=== PATIENT | female | born 1970 | race Caucasian/White ===

== ENCOUNTER 2018-12-02 18:31 | Emergency (ER) | payer BC, MEDICAID, OTHER ==
[~2018-12-02] VITALS: Ht 170.2 cm; Wt 45.6 kg
[2018-12-02 18:35] VITALS: BP 128/76; PULSE 101; RESP 20; Ht 170.2 cm; Wt 45.6 kg
[2018-12-02] MEDS ORDERED: ACET500C5 PO (18:56)
--- NOTE | 2018-12-02 19:07 | ERD ---
ER Documentation Chief Complaint Chief Complaint PT reports ST x 3 weeks, worse today HPI Patient is a 48-year-old female, past medical history of COPD, candidal esophagitis, history of heroin use, daily cigarette smoker, who presents to the ER for concerns of throat pain and dysphagia for the last month. She states to day her symptoms are worse. Patient states she has pain with swallowing. Patient also has some hoarseness in her voice. Patient denies any fevers, chills, nausea, vomiting, hematemesis, drooling, trismus. Patient does have a history of a chronic dry cough secondary to cigarette smoking. Patient denies any chest pain or shortness of breath. Patient states 2 months back she was seen at [facility] for similar symptoms. Patient states she was told she needs to follow-up with an ENT specialist however she has not followed up with an ENT specialist yet. ROS All systems reviewed and are negative except as per history of present illness. Medications Home Meds Active Scripts Acetaminophen* (Tylophen*) 500 Mg Capsule, 1 CAP PO Q6H PRN for PAIN AND OR ELEVATED TEMP, #20 CAP Prov:CRUZITO VASQUEZ PA-C 12/02/18 Allergies Allergies: Coded Allergies: No Known Allergy (Unverified , 12/02/18) PMhx/Soc Medical and Surgical Hx: pt denies Medical Hx, pt denies Surgical Hx Hx Alcohol Use: No Hx Substance Use: Yes (heroin) Hx Tobacco Use: Yes Smoking Status: Current every day smoker FmHx Family History: No diabetes Physical Exam Vitals Vital Signs Date Temp Pulse Resp B/P (MAP) Pulse Ox O2 O2 Flow FiO2 Time Delivery Rate 12/02/18 98.5 101 20 128/76 100 18:35 (93) Physical Exam GENERAL: Cachectic female. Appears in no acute distress. Speaking in full sentences. HEAD: Normocephalic, atraumatic. No deformities or ecchymosis. EYE: Pupils equal, round, and reactive to light. EOMs intact. No conjunctival erythema. No eye discharge. ENT: External ear without any masses or tenderness. Auditory canals clear bilaterally. TM visualized bilaterally, non-erythematous, non-bulging. Nasal mucosa pink with no discharge. Oropharynx is pink without any tonsillar swelling or exudates. No uvula deviation. No kissing tonsils. No drooling. No trismus. Patient is tolerating secretions well. Hoarseness in voice noted. Tongue is normal in appearance. NECK: Supple. No meningismus. Normal ROM of the neck. No hyperextension of the neck. LUNG: Clear to auscultation bilaterally. No rhonchi, wheezing, rales or coarse breath sounds. HEART: Regular rate and rhythm. No murmurs, rubs or gallops. EXTREMITES: Equal pulses bilaterally. No peripheral clubbing, cyanosis or edema. No unilateral leg swelling. NEUROLOGIC: Alert and oriented to person, place and time. Moving all four extremities. 5/5 strength in all extremities. Normal speech. Steady gait SKIN: Normal color. Warm and dry. No rashes or lesions. Procedures/MDM MEDICAL DECISION MAKING: This is a 48-year-old female presents the ER for concerns of throat pain and dysphagia for last month. Patient states she is here today because she wants to be seen by an ENT specialist. Patient states she was seen at another's hospital 2 months ago for similar symptoms and she was advised to need to follow-up with an ENT specialist. Vital signs were reviewed. Patient was afebrile. Patient was not hypoxic. The patient does not have trismus, muffled voice, uvula deviation, unilateral tonsillar swelling, or drooling. No signs of neck swelling or hyperextension of the neck noted. Patient was able to tolerate p.o. fluids without any difficulty. Patient had no episodes of vomiting. Patient was given referral information for GI specialist versus ENT specialist. Low suspicion for epiglottitis, peritonsillar abscess, retropharyngeal abscess, Ludwigs angina, strep pharyngitis, mononucleosis, dental abscess, esophageal perforation, candidal infection. Patient was nontoxic, [id number] prior to discharge. PRESCRIPTIONS: Tylenol DISCHARGE: At this time, patient is stable for discharge and outpatient management. Supportive therapies such as OTC throat lozenges and warm salt water gurgles were discussed. I have instructed the patient to follow-up with his/her primary care physician in 1-2 days. I have discussed with the patient the possibility of needing to see a specialist for further workup and imaging studies if symptoms persist. I have instructed the patient to promptly return to the ER for any new or worsening symptoms including increased pain, fever, nausea, vomiting, weakness or LOC. The patient and/or family expressed understanding of and agreement with this plan. All questions were answered. Home care instructions were provided. Disclaimer: Inadvertent spelling and grammatical errors are likely due to EHR/dictation software use and do not reflect on the overall quality of patient care. Also, please note that the electronic time recorded on this note does not necessarily reflect the actual time of the patient encounter. Departure Diagnosis: Primary Impression: Pharyngitis Pharyngitis/tonsillitis etiology: unspecified etiology Qualified Codes: J02.9 - Acute pharyngitis, unspecified Additional Impressions: Hoarseness History of cigarette smoking Episodic cigarette smoking dependence Condition: Fair Patient Instructions: When You Have a Sore Throat Referrals: SAIDA HERNANDEZ MD,SCOTT WALSH,CHRISTIAN Chang MD [facility] YOU HAVE RECEIVED A MEDICAL SCREENING EXAM AND THE RESULTS INDICATE THAT YOU DO NOT HAVE A CONDITION THAT REQUIRES URGENT TREATMENT IN THE EMERGENCY DEPARTMENT. FURTHER EVALUATION AND TREATMENT OF YOUR CONDITION CAN WAIT UNTIL YOU ARE SEEN IN YOUR DOCTORS OFFICE WITHIN THE NEXT 1-2 DAYS. IT IS YOUR RESPONSIBILITY TO MAKE AN APPOINTMENT FOR FOL-UP CARE. IF YOU HAVE A PRIMARY DOCTOR --you should call your primary doctor and schedule an appointment IF YOU DO NOT HAVE A PRIMARY DOCTOR YOU CAN CALL OUR PHYSICIAN REFERRAL HOTLINE AT IF YOU CAN NOT AFFORD TO SEE A PHYSICIAN YOU CAN CHOSE FROM THE FOLLOWING [facility] [address] [facility] [facility] [address]. [facility] [address] [facility] [address] [facility] [address] [facility]. [facility] [address] [facility] [facility] YOU HAVE RECEIVED A MEDICAL SCREENING EXAM AND THE RESULTS INDICATE THAT YOU DO NOT HAVE A CONDITION THAT REQUIRES URGENT TREATMENT IN THE EMERGENCY DEPARTMENT. FURTHER EVALUATION AND TREATMENT OF YOUR CONDITION CAN WAIT UNTIL YOU ARE SEEN IN YOUR DOCTORS OFFICE WITHIN THE NEXT 1-2 DAYS. IT IS YOUR RESPONSIBILITY TO Antonio MELGOZA AN APPOINTMENT FOR FOLOW-UP CARE. IF YOU HAVE A PRIMARY DOCTOR --you should call your primary doctor and schedule and appointment IF YOU DO NOT HAVE A PRIMARY DOCTOR YOU CAN CALL OUR PHYSICIAN REFERRAL HOTLINE AT . IF YOU CAN NOT AFFORD TO SEE A PHYSICIAN YOU CAN CHOSE FROM THE FOLLOWING [facility] INSTITUTIONS: [facility] [address] [place] [address] [facility] [address] [place] [address] [facility] [address] [place] [address] [facility] URGENT CARE/SPECIALTIES Additional Instructions: Follow up with ENT vs GI specialist for endoscopy. Unable to rule out malignancy. Call your primary care doctor TOMORROW for an appointment during the next 1-2 days.See the doctor sooner or return here if your condition worsens before your appointment time. CRUZITO VASQUEZ PA-C Dec 02, 2018 19:07
== END 2018-12-02 19:13 | disposition home or self-care (01) ==
LOC: FTE 18:31
DX: J02.9 Acute pharyngitis, unspecified (principal); F17.210 Nicotine dependence, cigarettes, uncomplicated; J44.9 Chronic obstructive pulmonary disease, unspecified; R49.0 Dysphonia
CPT/HCPCS: 99282